=== PATIENT | male | born 1975 | race Caucasian/White ===

== ENCOUNTER 2019-09-23 19:42 | Inpatient (IN) | payer OTHER ==
[~2019-09-23] VITALS: Ht 167.6 cm; Wt 74.8 kg
[2019-09-23 20:40] LABS: APTT 31.2 SECONDS (22.8-39.4); CALC OSMOLALITY 264 mosm/kg (275-300); CALCIUM 8.2 mg/dL (8.5-10.1); CARBON DIOXIDE 27.7 mmol/L (21.0-32.0); CHLORIDE - SERUM 96 mmol/L (98-107); CREATININE - SERUM 1.1 mg/dL (0.6-1.3); GLUCOSE 108 mg/dL (74-106); INR 1.01 (0.85-1.17); POTASSIUM - SERUM 3.8 mmol/L (3.5-5.1); PROTIME 13.3 SECONDS (11.6-15.0); SODIUM 132 mmol/L (136-145); UREA NITROGEN 11 mg/dL (7-18); eGFR NON AFRICAN AMERICAN 78 mL/min (90-120)
[2019-09-23 20:41] LABS: D-DIMER-QUANTITATIVE 0.46 ug/mLFEU (0.20-0.54)
[2019-09-23 20:43] LABS: HEMATOCRIT 39.9 % (42.0-54.0); HEMOGLOBIN 13.3 g/dL (13.5-17.5); LYMPHOCYTES 7.4 % (15-50); MCH 27.9 pg (26.0-34.0); MCHC 33.3 g/dL (31.0-37.0); MCV 83.6 fL (80.0-100.0); MEAN PLATELET VOLUME 9.4 fL (7.4-10.4); NEUTROPHILS 88.1 % (40-80); PLATELET COUNT 168 10x3/uL (130-400); RBC 4.77 10x6/uL (4.20-6.10); RDW 12.6 % (11.5-14.5)
[2019-09-23 20:53] LABS: ALBUMIN 3.3 g/dL (3.4-5.0); ALKALINE PHOSPHATASE 49 U/L (30-120); ALT (SGPT) 40 U/L (10-68); BILIRUBIN - TOTAL 0.59 mg/dL (0.2-1.3); CREATINE KINASE 179 UL (21-232); PRO BNP 99 pg/mL (0-125); PROTEIN - SERUM 6.7 g/dL (6.4-8.2); TROPONIN-I < 0.017 ng/mL (0.000-0.060)
[2019-09-23 21:09] VITALS: BP 144/60
[2019-09-23 22:29] VITALS: BP 114/79
--- NOTE | 2019-09-23 23:55 | NUR ---
PT RECEIVED FROM ER VIA WHEELCHAIR AT THIS TIME, PT AMBULATED TO BED, O2@2L/NC, NO C/O SOB NOTED, NO DISTRESS NOTED, RESP EVEN AND UNLABORED. CL IN REACH, SR UP X 2.
[2019-09-24 00:10] VITALS: BP 124/54
[2019-09-24 01:31] VITALS: BP 124/54; BMI 26.7
[2019-09-24 04:24] VITALS: BP 115/81
[2019-09-24 05:06] LABS: HEMATOCRIT 43.5 % (42.0-54.0); HEMOGLOBIN 14.4 g/dL (13.5-17.5); LYMPHOCYTES 5.2 % (15-50); MCHC 33.1 g/dL (31.0-37.0); MCV 84.6 fL (80.0-100.0); MEAN PLATELET VOLUME 9.7 fL (7.4-10.4); NEUTROPHILS 93.3 % (40-80); PLATELET COUNT 201 10x3/uL (130-400); RBC 5.14 10x6/uL (4.20-6.10); RDW 12.5 % (11.5-14.5); WBC 11.3 10x3/uL (4.8-10.8)
[2019-09-24 05:28] LABS: ALBUMIN 3.2 g/dL (3.4-5.0); ALKALINE PHOSPHATASE 49 U/L (30-120); ALT (SGPT) 41 U/L (10-68); BILIRUBIN - TOTAL 0.57 mg/dL (0.2-1.3); CALC OSMOLALITY 275 mosm/kg (275-300); CALCIUM 9.2 mg/dL (8.5-10.1); CARBON DIOXIDE 28.8 mmol/L (21.0-32.0); CHLORIDE - SERUM 100 mmol/L (98-107); CKMB 0.9 U/L (0.0-3.6); CREATINE KINASE 152 UL (21-232); CREATININE - SERUM 1.2 mg/dL (0.6-1.3); GLUCOSE 129 mg/dL (74-106); POTASSIUM - SERUM 4.2 mmol/L (3.5-5.1); PROTEIN - SERUM 7.7 g/dL (6.4-8.2); SODIUM 137 mmol/L (136-145); UREA NITROGEN 12 mg/dL (7-18); eGFR NON AFRICAN AMERICAN 71 mL/min (90-120)
[2019-09-24 05:30] LABS: TROPONIN-I < 0.017 ng/mL (0.000-0.060)
[2019-09-24 08:26] VITALS: BP 141/68
--- NOTE | 2019-09-24 09:17 | NUR ---
PT AWAKE AND ORIENTED, SHORT OF BREATH WHEN SPEAKING. DR. WALKER SAW PT IN ROOM. TO START ON I/V AND PO MEDICATION. PT IS ALERT AND OIRENTED, UP WITHOUT ASSISTANCE. NO COMPALINTS OR CONCERNS AT THIS TIME. CL IN REACH, SRX2.
--- NOTE | 2019-09-24 12:44 | NUR ---
PT AWAKE AND ORIENTED, BROUGHT PERSONAL BELONGINGS, DALY AND GIFTS. NO COMPLAINTS OR CONCERNS AT THIS TIME. STILL SHORT OF BREATH. DELIVERED PACKAGES. CL IN REACH, SRX2.
[2019-09-24 15:25] VITALS: Ht 167.6 cm; Wt 74.8 kg
--- NOTE | 2019-09-24 16:57 | NUR ---
PT ALERT AND ORIENTED. HAD TO INCREASE OXYGEN TO 4L. SATTING 93% ON 2 AND 3L. WHEN TAKING IT OFF, PT DSATS TO 85%. BOTH INHAILERS TAKEN. PT STILL AUDIBLY SHORT OF BREATH WHEN SPEAKING MODERATELY LONG SENTANCES. REQUESTS TO TRY THE REMDISAVERE (EXPIERAMENTAL COVID DRUG EXCUSE THE SPELLING). WILL SPEAK WITH DR. WALKER. PAGEArash WALKER. CL INR EACH, SRX2.
--- NOTE | 2019-09-24 17:42 | NUR ---
I have reviewed this patient and I concur with the Shift Assessment completed by the Licensed Practical Nurse today this shift.
[2019-09-24 19:18] VITALS: BP 118/67
--- NOTE | 2019-09-24 21:31 | NUR ---
PT IN BED, AAO X 3, RESP EVEN AND UNLABORED. NO DISTRESS NOTED, CL IN REACH, SR X 2.
[2019-09-24 23:14] VITALS: BP 107/50
--- NOTE | 2019-09-25 03:58 | NUR ---
I have reviewed this patient and I concur with the Shift Assessment completed by the Licensed Practical Nurse today this shift.
[2019-09-25 04:44] VITALS: BP 107/62
[2019-09-25 06:51] LABS: BASOPHILS 0.1 % (0-2); EOSINOPHILS 0 % (0-7); HEMATOCRIT 38.6 % (42.0-54.0); IMMATURE GRANULOCYTES 0.3 % (0-5); LYMPHOCYTES 4.4 % (15-50); MCH 28.5 pg (26.0-34.0); MCHC 33.7 g/dL (31.0-37.0); MCV 84.6 fL (80.0-100.0); MEAN PLATELET VOLUME 9.8 fL (7.4-10.4); MONOCYTES 3.9 % (2-11); NEUTROPHILS 91.3 % (40-80); RBC 4.56 10x6/uL (4.20-6.10); RDW 12.7 % (11.5-14.5)
[2019-09-25 06:52] LABS: PLATELET COUNT 282 10x3/uL (130-400)
[2019-09-25 07:00] LABS: ALBUMIN 2.9 g/dL (3.4-5.0); ALKALINE PHOSPHATASE 48 U/L (30-120); ALT (SGPT) 44 U/L (10-68); BILIRUBIN - DIRECT 0.09 mg/dL (0.00-0.30); BILIRUBIN - INDIRECT 0.13 mg/dL (0.00-1.00); BILIRUBIN - TOTAL 0.22 mg/dL (0.2-1.3); C-REACTIVE PROTEIN 13.5 mg/dL (0.0-0.9); CALC OSMOLALITY 283 mosm/kg (275-300); CARBON DIOXIDE 27.3 mmol/L (21.0-32.0); CHLORIDE - SERUM 104 mmol/L (98-107); CREATININE - SERUM 1.1 mg/dL (0.6-1.3); GLUCOSE 132 mg/dL (74-106); MAGNESIUM - SERUM 2.2 mg/dL (1.8-2.4); POTASSIUM - SERUM 4.1 mmol/L (3.5-5.1); SODIUM 141 mmol/L (136-145); UREA NITROGEN 14 mg/dL (7-18); eGFR NON AFRICAN AMERICAN 78 mL/min (90-120)
[2019-09-25 07:07] LABS: FERRITIN 1003 ng/mL (3-244)
[2019-09-25 08:24] VITALS: BP 109/57
--- NOTE | 2019-09-25 09:45 | NUR ---
PT AWAKE AND ORIENTED, LYING IN BED ON PHONE WHEN I ENTERED. STATES HE FEELS BETTER THIS MORNING AFTER DOSE OF ANTIVIRAL. STILL SHORT OF BREATH. PT REQUESTED SHOWER, PROVIDED, SELF AMBULATED/SHOWERED. NO COMPLAINTS OR CONCERNS AT THIS TIME. CL IN REACH, SRX2.
[2019-09-25 12:17] VITALS: BP 118/64
--- NOTE | 2019-09-25 15:43 | NUR ---
I have reviewed this patient and I concur with the Shift Assessment completed by the Licensed Practical Nurse today this shift.
--- NOTE | 2019-09-25 17:55 | NUR ---
PT AWAKE AND ORIENTED, LYING IN BED WATCHING TV. GIVEN SUPPER. REMAINS AFEBRILE THROUGHOUT THE DAY. SHORT OF BREATH FOR MODERATELY LONG SENTANCES AND UPON EXERTION. NO COMPLAINTS OR CONCERNS AT THIS TIME. CL IN REACH, SRX2. PT SHOWERED THIS MORNING, LINNENS CHANGED.
[2019-09-25 19:22] VITALS: BP 122/57
--- NOTE | 2019-09-25 19:50 | NUR ---
PT SETTING ON SIDE OF BED, AAO X 3, RESP EVEN AND UNLABORED. O2@4L/NC, NO DISTRESS NOTED, PT HAS NO CONCERNS OR WANTS NOTED AT THIS TIME, CL IN REACH, SR UP X 2.
[2019-09-25 21:36] VITALS: BP 113/60
[2019-09-26 00:37] VITALS: BP 114/64
--- NOTE | 2019-09-26 04:06 | NUR ---
I have reviewed this patient and I concur with the Shift Assessment completed by the Licensed Practical Nurse today this shift.
[2019-09-26 04:37] VITALS: BP 101/50
[2019-09-26 05:23] LABS: BASOPHILS 0.1 % (0-2); EOSINOPHILS 0 % (0-7); HEMATOCRIT 37.4 % (42.0-54.0); HEMOGLOBIN 12.4 g/dL (13.5-17.5); IMMATURE GRANULOCYTES 0.5 % (0-5); LYMPHOCYTES 5.5 % (15-50); MCH 28.4 pg (26.0-34.0); MCHC 33.2 g/dL (31.0-37.0); MCV 85.8 fL (80.0-100.0); MEAN PLATELET VOLUME 9.9 fL (7.4-10.4); MONOCYTES 5.3 % (2-11); NEUTROPHILS 88.6 % (40-80); PLATELET COUNT 323 10x3/uL (130-400); RBC 4.36 10x6/uL (4.20-6.10); RDW 12.9 % (11.5-14.5); WBC 19.3 10x3/uL (4.8-10.8)
[2019-09-26 05:52] LABS: ALBUMIN 2.6 g/dL (3.4-5.0); ALKALINE PHOSPHATASE 44 U/L (30-120); BILIRUBIN - DIRECT 0.05 mg/dL (0.00-0.30); BILIRUBIN - INDIRECT 0.09 mg/dL (0.00-1.00); BILIRUBIN - TOTAL 0.14 mg/dL (0.2-1.3); CALC OSMOLALITY 286 mosm/kg (275-300); CALCIUM 8.9 mg/dL (8.5-10.1); CARBON DIOXIDE 27.6 mmol/L (21.0-32.0); CHLORIDE - SERUM 108 mmol/L (98-107); CREATININE - SERUM 1.1 mg/dL (0.6-1.3); GLUCOSE 136 mg/dL (74-106); MAGNESIUM - SERUM 2.2 mg/dL (1.8-2.4); PHOSPHOROUS 3.3 mg/dL (2.5-4.9); POTASSIUM - SERUM 4.4 mmol/L (3.5-5.1); PROTEIN - SERUM 6.5 g/dL (6.4-8.2); SODIUM 142 mmol/L (136-145); UREA NITROGEN 17 mg/dL (7-18); eGFR NON AFRICAN AMERICAN 78 mL/min (90-120)
[2019-09-26 05:53] LABS: ALT (SGPT) 57 U/L (10-68)
[2019-09-26 08:35] VITALS: BP 121/56
--- NOTE | 2019-09-26 17:59 | NUR ---
I have reviewed this patient and I concur with the Shift Assessment completed by the Licensed Practical Nurse today this shift.
--- NOTE | 2019-09-26 18:31 | NUR ---
PT AWAKE AND ORIENTED THROUGHOUT THE DAY. NO COMPLAINTS OR CONCERNS. HAS HAD HICCUPS AGAIN, ADMINSITERED PRN THORAZINE. CL IN REACH, SRX2.
--- NOTE | 2019-09-26 19:48 | NUR ---
I HAVE ROUNDED ON PT AND NO NEEDS ARE MADE KNOWN ...PT IS AWAKE AND ALERT BED IS LOW AND LOCKED CALL LIGHT IS WITRH PT
[2019-09-26 20:54] VITALS: BP 121/55
--- NOTE | 2019-09-27 02:25 | NUR ---
HR DOWN TO 31 PT RESTING NO DISTRESS
[2019-09-27 05:06] VITALS: BP 104/57
[2019-09-27 05:58] LABS: ALBUMIN 2.6 g/dL (3.4-5.0); BILIRUBIN - DIRECT 0.06 mg/dL (0.00-0.30); BILIRUBIN - INDIRECT 0.12 mg/dL (0.00-1.00); BILIRUBIN - TOTAL 0.18 mg/dL (0.2-1.3); C-REACTIVE PROTEIN 3.4 mg/dL (0.0-0.9); CALCIUM 8.6 mg/dL (8.5-10.1); CARBON DIOXIDE 28.2 mmol/L (21.0-32.0); CREATININE - SERUM 1.2 mg/dL (0.6-1.3); MAGNESIUM - SERUM 2.3 mg/dL (1.8-2.4); PHOSPHOROUS 3.7 mg/dL (2.5-4.9); POTASSIUM - SERUM 4.2 mmol/L (3.5-5.1); PROTEIN - SERUM 6.5 g/dL (6.4-8.2)
[2019-09-27 06:46] LABS: BASOPHILS 0.2 % (0-2); EOSINOPHILS 0 % (0-7); HEMATOCRIT 39.1 % (42.0-54.0); LYMPHOCYTES 9.4 % (15-50); MCH 28.7 pg (26.0-34.0); MCHC 33.2 g/dL (31.0-37.0); MCV 86.3 fL (80.0-100.0); MEAN PLATELET VOLUME 9.7 fL (7.4-10.4); MONOCYTES 7.6 % (2-11); NEUTROPHILS 80.8 % (40-80); PLATELET COUNT 349 10x3/uL (130-400); RBC 4.53 10x6/uL (4.20-6.10); RDW 13.2 % (11.5-14.5); WBC 17.5 10x3/uL (4.8-10.8)
--- NOTE | 2019-09-27 06:48 | NUR ---
I have reviewed this patient and I concur with the Shift Assessment completed by the Licensed Practical Nurse today this shift.
[2019-09-27 08:57] VITALS: BP 127/64
--- NOTE | 2019-09-27 09:46 | NUR ---
PT AWAKE AND ORIENTED, NO COMPLAINTS OR CONCERNS STATED AT THIS TIME. PT IS TIRED OF THE SAME FOOD, WILL TRY AND ORDER BIGGER VARIETY. CL IN REACH, SRX2.
[2019-09-27 16:46] VITALS: BP 121/56
--- NOTE | 2019-09-27 17:49 | NUR ---
PT AWAKE AND ORIENTED THROUGHOUT THE DAY. TOOK SHOWER IN THE AM. NO COMPLAINTS OR CONCERNS AT ANY TIME. HAD HICCUPS NEAR SUPPER TIME, ADMINISTERED PRN THORAZINE. PT HAS TOLERATED ROOM AIT (96%-97%) THROUGHOUT THE DAY. STATES HE FEELS MUCH BETTER. CL IN REACH, SRX2.
--- NOTE | 2019-09-27 18:37 | NUR ---
I have reviewed this patient and I concur with the Shift Assessment completed by the Licensed Practical Nurse today this shift.
--- NOTE | 2019-09-27 19:13 | NUR ---
PT AWAKE AND ALERT SENIES NEEDS AT THIS TIME BED LOW AND LOCKED AND CALL LIGHT IS IN REACH.
[2019-09-27 21:43] VITALS: BP 124/60
--- NOTE | 2019-09-28 02:37 | NUR ---
I have reviewed this patient and I concur with the Shift Assessment completed by the Licensed Practical Nurse today this shift.
[2019-09-28 04:00] VITALS: BP 112/59
[2019-09-28 06:47] LABS: ALBUMIN 2.6 g/dL (3.4-5.0); ALKALINE PHOSPHATASE 46 U/L (30-120); BILIRUBIN - DIRECT 0.05 mg/dL (0.00-0.30); BILIRUBIN - INDIRECT 0.16 mg/dL (0.00-1.00); BILIRUBIN - TOTAL 0.21 mg/dL (0.2-1.3); CALC OSMOLALITY 284 mosm/kg (275-300); CALCIUM 8.9 mg/dL (8.5-10.1); CARBON DIOXIDE 26.4 mmol/L (21.0-32.0); CHLORIDE - SERUM 107 mmol/L (98-107); CREATININE - SERUM 1.1 mg/dL (0.6-1.3); GLUCOSE 97 mg/dL (74-106); HEMATOCRIT 39.8 % (42.0-54.0); HEMOGLOBIN 13.2 g/dL (13.5-17.5); MAGNESIUM - SERUM 2.1 mg/dL (1.8-2.4); MCH 28.6 pg (26.0-34.0); MCHC 33.2 g/dL (31.0-37.0); MCV 86.1 fL (80.0-100.0); PHOSPHOROUS 3.8 mg/dL (2.5-4.9); PLATELET COUNT 391 10x3/uL (130-400); POTASSIUM - SERUM 3.9 mmol/L (3.5-5.1); PROTEIN - SERUM 6.3 g/dL (6.4-8.2); RBC 4.62 10x6/uL (4.20-6.10); RDW 13.1 % (11.5-14.5); SODIUM 142 mmol/L (136-145); UREA NITROGEN 18 mg/dL (7-18); WBC 19.9 10x3/uL (4.8-10.8); eGFR NON AFRICAN AMERICAN 78 mL/min (90-120)
[2019-09-28 06:57] LABS: ALT (SGPT) 89 U/L (10-68)
[2019-09-28 08:35] VITALS: BP 114/68
[2019-09-28 08:40] LABS: EOSINOPHILS 1 % (0-7); LYMPHOCYTES 14 % (15-50); MONOCYTES 6 % (2-11); NEUTROPHILS 73 % (40-80); PLATELET ESTIMATE NORMAL
--- NOTE | 2019-09-28 10:10 | NUR ---
REPORT RECEIVED. WILL CONTINUE WITH POC. PT CURRENTLY LYING SEMI FOWLERS. CALL LIGHT W/I REACH. PT IS AAO AND UP AD KAL. RR EVEN AND UNLABORED ON RA. VSS AND WNL. L.FOR PIV SALINE LOCKED. NO S/S OF DISTRESS NOTED. WILL CTM.
[2019-09-28] MEDS ORDERED: AZITHROMYCIN500 MG PO (15:52)
[2019-09-28] MEDS ORDERED: OMNICEF300 MG PO ×2 (15:52→16:30)
[2019-09-28] MEDS ORDERED: DECADRON4 MG PO ×2 (15:53→16:31)
[2019-09-28] MEDS ORDERED: SYMBICORT 16010.2 GM INH ×2 (15:58→16:30)
--- NOTE | 2019-09-28 16:20 | NUR ---
NO PHARMACY LISTED IN ADMIT STATUS. I CALLED THE PATIENT AND HE SAID [facility] ON [place]. I CALLED HIS [facility] IN.
[2019-09-28] MEDS ORDERED: ZPAK (16:30)
--- NOTE | 2019-09-28 16:52 | NUR ---
PT DISCHARGED HOME VIA AMBULATORY. PIV REMOVED WITH CATHETER TIP FULLY INTACT. PT SIGNED PROPER DISCHARGE INSTRUCTIONS AND REMOVED ALL VALUABLES FROM THE ROOM. TELEMETRY REMOVED AND RETURNED.
== END 2019-09-28 16:53 | disposition home or self-care (01) | DRG 177 ==
LOC: D.ER 19:42 → D.M2 22:49
PROVIDERS: Emergency Medicine; Internal Medicine Pulmonary Disease; ADMIT Family Medicine; ATTEND Family Medicine
DX: U07.1 COVID-19 (principal); J12.89 Other viral pneumonia; J96.01 Acute respiratory failure with hypoxia; D64.9 Anemia, unspecified